=== PATIENT | male | born 2000 | race Caucasian/White ===

== ENCOUNTER 2024-06-29 07:56 | Emergency (ER) | payer OTHER ==
[~2024-06-29] VITALS: Ht 175.3 cm; Wt 84.6 kg
[2024-06-29] MEDS: ONDANSETRON 4MG 2ML VIAL IV ONE (09:54)
[2024-06-29] MEDS: PANTOPRAZOLE 40MG VIAL IV ONE (09:54)
[2024-06-29 10:03] LABS: BASO % 0.3 % (0.0-1.0); EOS # 0.1 10^3/uL (0.0-0.5); EOS % 0.9 % (0.0-3.0); HEMATOCRIT 48.6 % (42.0-52.0); HEMOGLOBIN 16.2 g/dl (13.5-17.5); LYMPH % 17.8 % (24.0-44.0); MEAN CORPUSCULAR HEMOGLOBIN 27.6 pg (27.0-33.0); MEAN CORPUSCULAR HGB CONC 33.3 g/dl (32.0-36.5); MEAN CORPUSCULAR VOLUME 82.9 fl (80.0-96.0); MONO % 17.8 % (2.0-8.0); NEUTROPHILS # 3.7 10^3/uL (1.5-8.5); PLATELET COUNT, AUTOMATED 236 10^3/uL (150-450); RED BLOOD COUNT 5.86 10^6/uL (4.30-6.10); WHITE BLOOD COUNT 5.9 10^3/uL (4.0-10.0)
[2024-06-29] MEDS: GASTROGRAFIN SOLUTION 30ML PO SCH (10:13)
[2024-06-29 10:15] LABS: INR 1.21; PARTIAL THROMBOPLASTIN TIME 29.5 SECONDS (24.8-34.2); PROTHROMBIN TIME 15.6 SECONDS (12.5-14.5)
[2024-06-29 10:20] LABS: ERYTHROCYTE SEDIMENTATION RATE 22 mm/hr (0-15)
[2024-06-29 10:27] LABS: LIPASE 35 U/L (12-53)
[2024-06-29 10:29] LABS: ALBUMIN 4.2 G/DL (3.2-5.2); ALKALINE PHOSPHATASE 73 U/L (40-129); ALT/SGPT 48 U/L (7.0-40); AST/SGOT 22 U/L (<34); BILIRUBIN,DIRECT 0.3 MG/DL (<0.4); BILIRUBIN,TOTAL 0.9 MG/DL (0.3-1.2); BLOOD UREA NITROGEN 19 MG/DL (9-23); CALCIUM LEVEL 9.6 MG/DL (8.5-10.1); CARBON DIOXIDE LEVEL 29 MMOL/L (20-31); CHLORIDE LEVEL 106 MMOL/L (98-107); CREATININE FOR GFR 0.98 MG/DL (0.70-1.30); GLOMERULAR FILTRATION RATE > 60.0 (>60); GLUCOSE, FASTING 103 MG/DL (60-100); POTASSIUM SERUM 4.6 MMOL/L (3.5-5.1); SODIUM LEVEL 138 MMOL/L (136-145); TOTAL PROTEIN 7.8 G/DL (5.7-8.2)
[2024-06-29] MEDS ORDERED: ISOVUE-370 76% 100ML VIAL As Ordered ONE (11:34)
[2024-06-29] MEDS ORDERED: PROT1TAB2 PO (12:47)
[2024-06-29] MEDS ORDERED: ONDA-282 PO (12:47)
[2024-06-29 13:15] VITALS: BP 115/61; TEMP 100.3; O2SAT 98
[2024-06-29] MEDS: ACETAMINOPHEN 325 MG TAB PO ONE (13:16)
== END 2024-06-29 13:19 | disposition home or self-care (01) ==
LOC: M ED 07:56
DX: A08.11 Acute gastroenteropathy due to Norwalk agent (principal); K92.2 Gastrointestinal hemorrhage, unspecified; Z79.83 Long term (current) use of bisphosphonates; Z79.899 Other long term (current) drug therapy
CPT/HCPCS: 74177; 80048; 80076; 83690; 85025; 85610; 85652; 85730; 86140; 86850; 86900; 86901; 87507; 96374; 99284; J2405; J2470; Q9963; Q9967

== ENCOUNTER → 2025-07-13 | Outpatient (REF) | payer OTHER ==
[~2025-07-13] MED LIST: ONDA-282 PO; PROT1TAB2 PO
== END ==
LOC: M SMT 15:32
PROVIDERS: ATTEND Urology
DX: Z30.2 Encounter for sterilization (principal)